=== PATIENT | female | born 1970 | race African-American/Black ===

== ENCOUNTER 2016-04-26 11:48 | Emergency (ER) | payer MEDICAID, OTHER ==
[~2016-04-26] VITALS: Ht 170.2 cm; Wt 65.8 kg
[~2016-04-26 11:48] MED LIST: AFRIN NASAL SPR30 ML NASAL; ALBUTEROL SULF8.5 GM INH; AZITHROMYCIN250 MG ORAL; CIPRO500 MG PO; CLARITIN-D 241 EACH PO; DIFLUCAN100 MG ORAL; DYAZIDE1 CAP ORAL; FLONASE1 SPRAYS NASAL; METRONIDAZOLE500 MG ORAL; MONISTAT 744 GM VG; POTASSIUM CHLO20 ME1 ORAL; VERAPAMIL ER240 MG ORAL
[2016-04-26 12:46] LABS: APPEARANCE,URINE SLIGHTLY CLOUDY; KETONES,URINE NEGATIVE (NEGATIVE); LEUKOCYTE ESTERASE ,URINE 1+ (NEGATIVE); NITRITE,URINE NEGATIVE (NEGATIVE); PH,URINE 8 (4.5-8.0); PROTEIN,URINE NEGATIVE (NEGATIVE); UROBILINOGEN,URINE NORMAL MG/DL (0.0-1.0)
[2016-04-26 12:56] LABS: BACTERIA,URINE FEW /HPF; SQUAMOUS EPITHELIAL CELL,UR FEW /LPF (NONE/OCC)
[2016-04-26 13:00] VITALS: BP 124/85
[2016-04-26] MEDS ORDERED: NITROFURANTOIN100 M2 ORAL (13:13)
[2016-04-26 13:21] VITALS: BP 124/85
--- NOTE | 2016-04-26 13:51 | Emergency Room Report ---
History of Present Illness General Chief Complaint: Female Urogenital Problems Source: Patient Present Illness HPI The patient is a 46-year-old female presenting with lower abdominal pain and dysuria which began yesterday. The patient also admits to hematuria. Abdominal pain is described as a 6/10 dull ache only to the lower mid abdomen. Patient also states that she feels a burning with urination. Patient denies any vaginal discharge, flank pain, nausea, vomiting, fever, chills. Allergies: Coded Allergies: PENICILLINS (Verified Allergy, 11/28/12) SULFA (SULFONAMIDE ANTIBIOTICS) (Verified Allergy, 11/28/12) Patient History Past Medical History: see triage record Pertinent Family History: none Last Menstrual Period: hyst Reviewed Nursing Documentation: PMH: Agreed, PSxH: Agreed Nursing Documentation-PMH Past Medical History: No History, Except For Hx Cardiac Problems: No Hx Hypertension: Yes Hx Neurological Problems: No - BRAIN ANURYSM Hx Cerebrovascular Accident: Yes - ANNURYSM 1994 Hx Seizures: Yes - 1994 Review of Systems All Other Systems: negative except mentioned in HPI Physical Exam Vital Signs Date Time Temp Pulse Resp B/P Pulse Ox O2 Delivery O2 Flow Rate FiO2 04/26/16 11:57 98.2 90 18 124/85 98 Room Air Sp02 EP Interpretation: reviewed, normal General Appearance: no apparent distress, alert, GCS 15, non-toxic Head: normocephalic, atraumatic Eyes: bilateral eye PERRL, bilateral eye normal inspection Gastrointestinal: normal bowel sounds, soft, non-distended, no guarding, no rebound, tenderness - suprapubic Genitourinary: normal inspection, no CVA tenderness Musculoskeletal: back normal, gait/station normal, normal range of motion, non- tender Neurologic: alert, oriented x3, responsive, motor strength/tone normal, sensory intact, speech normal Psychiatric: judgement/insight normal, memory normal, mood/affect normal, no suicidal/homicidal ideation Skin: normal color, no rash, warm/dry, well hydrated Lymphatic: no adenopathy Medical Decision Making PA Attestation Dr. Grimes is my supervising physician. Patient management was discussed with my supervising physician Diagnostic Impression: Primary Impression: UTI ER Course The patient is a 46-year-old female presenting with lower abdominal pain and dysuria which began yesterday Differential diagnosis considered but not limited to: UTI, vaginitis, pyelonephritis, pyelonephrosis, PID, ectopic PE: Vitals WNL. Afebrile. Abd is soft. Normal BS. + suprapubic TTP. No CVA tenderness. UA is consistent with UTI The patient will be discharged home with a prescription for Macrobid. ER precautions are given Laboratory Tests Test 04/26/16 12:00 Urine Color Yellow Urine Appearance Slightly cloudy Urine pH 8 (4.5-8.0) Urine Specific [place] 1.010 (1.005-1.035) Urine Protein Negative (NEGATIVE) Urine Glucose (UA) Negative (NEGATIVE) Urine Ketones Negative (NEGATIVE) Urine Occult Blood 4+ (NEGATIVE) H Urine Nitrite Negative (NEGATIVE) Urine Bilirubin Negative (NEGATIVE) Urine Urobilinogen Normal MG/DL (0.0-1.0) Urine Leukocyte Esterase 1+ (NEGATIVE) H Urine RBC 5-10 /HPF (0 - 2) H Urine WBC 10-15 /HPF (0 - 2) H Urine Squamous Epithelial Cells Few /LPF (NONE/OCC) Urine Bacteria Few /HPF (NONE) Urine HCG, Qualitative Negative Lab Results Impression 10-15 WBCs. No nitrites. Last Vital Signs Date Time Temp Pulse Resp B/P Pulse Ox O2 Delivery O2 Flow Rate FiO2 04/26/16 11:57 98.2 90 18 124/85 98 Room Air Status: improved Disposition: HOME, SELF-CARE Condition: Improved Scripts Nitrofurantoin Monohyd/M-Cryst* (MACROBID 100 MG*) 100 Mg Capsule 100 MG ORAL EVERY 12 HOURS, #14 CAP Prov: JESSE ARROYO 04/26/16 Referrals: [facility],REFERR[facility] Patient Instructions: Urinary Tract Infection Additional Instructions: I discussed my findings with the patient. All questions and concerns have been answered. Treatment and medication compliance have been addressed. I advised the patient that they need to follow up with PMD in 3-5 days. Return to ED if symptoms worsen, new symptoms arise, or if needed for any reason. Patient verbalized understanding of discharge instructions. JESSE ARROYO Apr 26, 2016 13:51
== END 2016-04-26 13:21 | disposition home or self-care (01) ==
LOC: EMR 12:36
DX: N39.0 Urinary tract infection, site not specified (principal); Z88.0 Allergy status to penicillin; Z88.2 Allergy status to sulfonamides; I10 Essential (primary) hypertension; Z86.73 Personal history of transient ischemic attack (TIA), and cerebral infarction without residual deficits
CPT/HCPCS: 81003; 81025; 87086; 87181; 99283

== ENCOUNTER 2016-05-19 07:02 | Emergency (ER) | payer OTHER ==
[~2016-05-19] VITALS: Ht 170.2 cm; Wt 72.6 kg
[~2016-05-19 07:02] MED LIST changes: +NITROFURANTOIN100 M2 ORAL
[2016-05-19 07:15] VITALS: BP 135/86
[2016-05-19 07:54] LABS: APPEARANCE,URINE SLIGHTLY CLOUDY; KETONES,URINE NEGATIVE (NEGATIVE); LEUKOCYTE ESTERASE ,URINE 3+ (NEGATIVE); NITRITE,URINE NEGATIVE (NEGATIVE); PH,URINE 7 (4.5-8.0); PROTEIN,URINE 2+ (NEGATIVE); UROBILINOGEN,URINE 1 MG/DL (0.0-1.0)
[2016-05-19 08:07] LABS: BACTERIA,URINE FEW /HPF; RBC,URINE 30-40 /HPF (0 - 2); SQUAMOUS EPITHELIAL CELL,UR FEW /LPF (NONE/OCC); WBC,URINE 30-40 /HPF (0 - 2)
[2016-05-19] MEDS ORDERED: NITROFURANTOIN100 M2 ORAL (08:18)
[2016-05-19 08:35] VITALS: BP 135/86
--- NOTE | 2016-05-19 08:46 | Emergency Room Report ---
History of Present Illness General Chief Complaint: Female Urogenital Problems Source: Patient Present Illness HPI 46 YOF presents with dysuria for 2 days associated with spotting. Denies abd/ pelvic pain, nausea/vomiting, fever/chills, flank pain. Was seen here last month, tx for UTI with macrobid, which she states improved symptoms. Endorses "frequent vaginal infections" since hysterectomy. Allergies: Coded Allergies: PENICILLINS (Verified Allergy, 11/28/12) SULFA (SULFONAMIDE ANTIBIOTICS) (Verified Allergy, 11/28/12) Patient History Past Medical History: none Past Surgical History: hysterectomy Pertinent Family History: none Social History: Denies: alcohol use, drug use, smoking Last Menstrual Period: s/p hyst Now: No Immunizations: UTD Reviewed Nursing Documentation: PMH: Agreed, PSxH: Agreed Nursing Documentation-PMH Past Medical History: No Stated History Hx Cardiac Problems: No Hx Hypertension: Yes Hx Neurological Problems: No - BRAIN ANURYSM Hx Cerebrovascular Accident: Yes - ANNURYSM 1994 Hx Seizures: Yes - 1994 Review of Systems All Other Systems: negative except mentioned in HPI Physical Exam Vital Signs Date Time Temp Pulse Resp B/P Pulse Ox O2 Delivery O2 Flow Rate FiO2 05/19/16 07:14 97.9 75 16 135/86 100 05/19/16 07:15 Room Air Sp02 EP Interpretation: reviewed, normal General Appearance: normal inspection, well appearing, no apparent distress, alert Head: atraumatic ENT: normal ENT inspection, hearing grossly normal, normal voice Neck: normal inspection, full range of motion, supple, no bony tend Respiratory: normal inspection, lungs clear, normal breath sounds, no respiratory distress, no retraction, no wheezing Cardiovascular #1: regular rate, rhythm, no edema Gastrointestinal: normal inspection, normal bowel sounds, non tender, soft, no guarding, no hernia Genitourinary: no CVA tenderness Musculoskeletal: normal inspection, back normal, normal range of motion, Kathy' s Sign negative Neurologic: normal inspection, alert, oriented x3, responsive, mud trucker III-XII nml as tested, motor strength/tone normal, speech normal Psychiatric: normal inspection Skin: normal inspection Lymphatic: normal inspection Medical Decision Making Diagnostic Impression: Primary Impression: Dysuria ER Course UA grossly infected. Multiple WBCs, LE Previous Cx shows salazar-susceptibility Will Rx with macrobid again Advised PMD referral for Urology for bladder scan to r/o anatomic abnormalities predisposing to frequent UTI DC home Last Vital Signs Date Time Temp Pulse Resp B/P Pulse Ox O2 Delivery O2 Flow Rate FiO2 05/19/16 08:35 97.9 75 16 135/86 100 Room Air Status: improved Disposition: HOME, SELF-CARE Condition: Improved Scripts Nitrofurantoin Monohyd/M-Cryst* (MACROBID 100 MG*) 100 Mg Capsule 100 MG ORAL EVERY 12 HOURS for 7 Days, #14 CAP Prov: JESSICA ALVAREZ M.D. 05/19/16 Patient Instructions: Urinary Tract Infection Additional Instructions: - Take ALL antibiotics for UTI - Please followup with primary care doctor for Urology referral for recurrent UTI JESSICA ALVAREZ M.D. May 19, 2016 08:46
== END 2016-05-19 08:35 | disposition home or self-care (01) ==
LOC: EMR 07:50
DX: R30.0 Dysuria (principal); I10 Essential (primary) hypertension; Z90.710 Acquired absence of both cervix and uterus; Z88.0 Allergy status to penicillin; Z88.2 Allergy status to sulfonamides; Z86.73 Personal history of transient ischemic attack (TIA), and cerebral infarction without residual deficits
CPT/HCPCS: 81003; 81025; 87086; 99283

== ENCOUNTER 2016-12-15 12:22 | Emergency (ER) | payer MEDICAID, OTHER ==
[~2016-12-15] VITALS: Ht 170.2 cm; Wt 72.6 kg
[2016-12-15 13:01] VITALS: BP 124/67
[2016-12-15 13:24] LABS: ALANINE AMINOTRANSFERASE 13 U/L (3-33); ALBUMIN/GLOBULIN RATIO 1.5 (1.0-2.7); ANION GAP 11 (5-15); ASPARTATE AMINO TRANSFERASE 14 U/L (5-40); CARBON DIOXIDE 27 mEQ/L (20-30); CHLORIDE 96 mEQ/L (98-107); CREATININE 0.9 mg/dL (0.5-0.9); GLOMERULAR FILTRATION RATE > 60 mL/min (>60); HEMOLYSIS 2; LIPASE 55 U/L (< 60); POTASSIUM 3.1 mEQ/L (3.4-4.9); SODIUM 134 mEQ/L (135-145); TOTAL PROTEIN 6.7 g/dL (6.6-8.7)
[2016-12-15 13:28] LABS: APPEARANCE,URINE SLIGHTLY CLOUDY; KETONES,URINE NEGATIVE (NEGATIVE); LEUKOCYTE ESTERASE ,URINE NEGATIVE (NEGATIVE); NITRITE,URINE NEGATIVE (NEGATIVE); PH,URINE 7 (4.5-8.0); PROTEIN,URINE NEGATIVE (NEGATIVE); UROBILINOGEN,URINE NORMAL MG/DL (0.0-1.0)
[2016-12-15 13:35] LABS: BASOPHILS % (AUTO) 0.7 % (0.0-2.0); EOSINOPHILS % (AUTO) 0.9 % (0.0-3.0); LYMPHOCYTES % (AUTO) 31.2 % (20.0-45.0); MEAN CORPUSCULAR HEMOGLOBIN 30.4 PG (27.0-31.0); MEAN CORPUSCULAR HGB CONC 33.9 G/DL (32.0-36.0); MEAN CORPUSCULAR VOLUME 90 FL (80-99); MEAN PLATELET VOLUME 10.3 FL (6.5-10.1); MONOCYTES % (AUTO) 5.9 % (1.0-10.0); NEUTROPHILS % (AUTO) 61.3 % (45.0-75.0); PLATELET COUNT 216 K/UL (150-450); RED BLOOD COUNT 4.66 M/UL (4.20-5.40); RED CELL DISTRIBUTION WIDTH 11.5 % (11.6-14.8); WHITE BLOOD COUNT 6.4 K/UL (4.8-10.8)
[2016-12-15 13:45] LABS: BACTERIA,URINE FEW /HPF; SQUAMOUS EPITHELIAL CELL,UR FEW /LPF (NONE/OCC); WBC,URINE 0-2 /HPF (0 - 2)
--- NOTE | 2016-12-15 13:49 | Emergency Room Report ---
History of Present Illness General Chief Complaint: Abdominal Pain Source: Patient Present Illness HPI 46-year-old female presents to ED for evaluation. States that she's been having lower back pain for the last several days which is now radiating to the front. Pain is throbbing, 6/10. Constant. Denies dysuria. Denies flank pain. Denies nausea or vomiting. No other aggravating relieving factors. Denies any other systemic symptoms Allergies: Coded Allergies: PENICILLINS (Verified Allergy, 11/28/12) SULFA (SULFONAMIDE ANTIBIOTICS) (Verified Allergy, 11/28/12) Patient History Past Medical History: HTN Past Surgical History: none Pertinent Family History: none Social History: Denies: smoking, alcohol use, drug use Last Menstrual Period: partial hystrectomy Now: No Immunizations: UTD Reviewed Nursing Documentation: PMH: Agreed, PSxH: Agreed Nursing Documentation-PMH Past Medical History: No History, Except For Hx Cardiac Problems: No Hx Hypertension: Yes Hx Pacemaker: No Hx Asthma: No Hx COPD: No Hx Diabetes: No Hx Cancer: No Hx Gastrointestinal Problems: No Hx Dialysis: No History Of Psychiatric Problem: No Hx Neurological Problems: No Hx Cerebrovascular Accident: No Hx Seizures: No Review of Systems All Other Systems: negative except mentioned in HPI Physical Exam Vital Signs Date Time Temp Pulse Resp B/P (MAP) Pulse Ox O2 Delivery O2 Flow Rate FiO2 12/15/16 12:25 97.9 76 16 124/78 98 12/15/16 13:01 Room Air Sp02 EP Interpretation: reviewed, normal General Appearance: no apparent distress, alert, GCS 15, non-toxic Head: normocephalic, atraumatic Eyes: bilateral eye normal inspection, bilateral eye PERRL ENT: hearing grossly normal, normal pharynx, no angioedema, normal voice Neck: full range of motion, supple/symm/no masses Respiratory: chest non-tender, lungs clear, normal breath sounds, speaking full sentences Cardiovascular #1: regular rate, rhythm, no edema Cardiovascular #2: 2+ carotid (R), 2+ carotid (L), 2+ radial (R), 2+ radial (L) , 2+ dorsalis pedis (R), 2+ dorsalis pedis (L) Gastrointestinal: normal bowel sounds, soft, non-distended, no guarding, no rebound, tenderness - periumbilical Rectal: deferred Genitourinary: normal inspection, no CVA tenderness Musculoskeletal: back normal, gait/station normal, normal range of motion, tender - lower back Neurologic: alert, oriented x3, responsive, motor strength/tone normal, sensory intact, speech normal Psychiatric: judgement/insight normal, memory normal, mood/affect normal, no suicidal/homicidal ideation Reflexes: 3+ bicep (R), 3+ bicep (L), 3+ tricep (R), 3+ tricep (L), 3+ knee (R) , 3+ knee (L) Skin: normal color, no rash, warm/dry, well hydrated Lymphatic: no adenopathy Medical Decision Making Diagnostic Impression: Primary Impression: Constipation Qualified Codes: K59.00 - Constipation, unspecified Additional Impression: abdominal pain ER Course Hospital Course 46-year-old F presents to ED with abdominal pain Differential diagnosis includes-appendicitis, cholecystitis, small bowel obstruction, gastritis, Clinical course Patient placed on stretcher. After initial history and physical I ordered labs , IV fluids, pain medications and CT Labs - no leukocytosis, electrolytes ok, LFTs normal CT considerable fecal impaction I feel this is a highly complex case requiring extensive working including EKG/ Rhythm strip, Xray/CT/US, Blood/urine lab work, repeat exams while in ED, and administration of strong opiates/narcotics for pain control, admission to hospital or close patient follow up. Diagnosis - constipation Stable and discharged to home with Rx Bentyl, Lactulose. Followup with PMD. Return to ED if symptoms recur or worsen Labs Test 12/15/16 12:30 12/15/16 12:47 Urine Color Pale yellow Urine Appearance Slightly cloudy Urine pH 7 (4.5-8.0) Urine Specific [place] 1.010 (1.005-1.035) Urine Protein Negative (NEGATIVE) Urine Glucose (UA) Negative (NEGATIVE) Urine Ketones Negative (NEGATIVE) Urine Occult Blood 3+ (NEGATIVE) Urine Nitrite Negative (NEGATIVE) Urine Bilirubin Negative (NEGATIVE) Urine Urobilinogen Normal MG/DL (0.0-1.0) Urine Leukocyte Esterase Negative (NEGATIVE) Urine RBC 5-10 /HPF (0 - 2) Urine WBC 0-2 /HPF (0 - 2) Urine Squamous Epithelial Cells Few /LPF (NONE/OCC) Urine Bacteria Few /HPF (NONE) White Blood Count 6.4 K/UL (4.8-10.8) Red Blood Count 4.66 M/UL (4.20-5.40) Hemoglobin 14.2 G/DL (12.0-16.0) Hematocrit 41.9 % (37.0-47.0) Mean Corpuscular Volume 90 FL (80-99) Mean Corpuscular Hemoglobin 30.4 PG (27.0-31.0) Mean Corpuscular Hemoglobin Concent 33.9 G/DL (32.0-36.0) Red Cell Distribution Width 11.5 % (11.6-14.8) Platelet Count 216 K/UL (150-450) Mean Platelet Volume 10.3 FL (6.5-10.1) Neutrophils (%) (Auto) 61.3 % (45.0-75.0) Lymphocytes (%) (Auto) 31.2 % (20.0-45.0) Monocytes (%) (Auto) 5.9 % (1.0-10.0) Eosinophils (%) (Auto) 0.9 % (0.0-3.0) Basophils (%) (Auto) 0.7 % (0.0-2.0) Sodium Level 134 mEQ/L (135-145) Potassium Level 3.1 mEQ/L (3.4-4.9) Chloride Level 96 mEQ/L (98-107) Carbon Dioxide Level 27 mEQ/L (20-30) Anion Gap 11 (5-15) Blood Urea Nitrogen 11 mg/dL (7-23) Creatinine 0.9 mg/dL (0.5-0.9) Estimat Glomerular Filtration Rate > 60 mL/min (>60) Glucose Level 129 mg/dL (74-106) Calcium Level 9.0 mg/dL (8.6-10.2) Total Bilirubin 0.4 mg/dL (0.0-1.2) Aspartate Amino Transf (AST/SGOT) 14 U/L (5-40) Alanine Aminotransferase (ALT/SGPT) 13 U/L (3-33) Alkaline Phosphatase 54 U/L (35-104) Total Protein 6.7 g/dL (6.6-8.7) Albumin 4.1 g/dL (3.5-5.2) Globulin 2.6 g/dL Albumin/Globulin Ratio 1.5 (1.0-2.7) Lipase 55 U/L (< 60) Human Chorionic Gonadotropin, Quant < 1 mIU/mL CT/MRI/US Diagnostic Results CT/MRI/US Diagnostic Results : Imaging Test Ordered: CT A/P Impression considerable fecal impaction Last Vital Signs Date Time Temp Pulse Resp B/P (MAP) Pulse Ox O2 Delivery O2 Flow Rate FiO2 12/15/16 13:01 98.0 73 21 124/67 100 Room Air Status: improved Disposition: HOME, SELF-CARE Condition: Stable Scripts Dicyclomine Hcl* (BENTYL*) 10 Mg Capsule 10 MG ORAL FOUR TIMES A DAY for For Pain, #20 CAP Prov: Ori Grimes 12/15/16 Lactulose (LACTULOSE*) 20 Gm/30 Ml Solution 30 ML ORAL DAILY for Constipation, #90 ML 0 Refills Prov: Ori Grimes 12/15/16 Referrals: NON PHYSICIAN (PCP) LURDES LEWIS M.D. Dec 15, 2016 13:49
--- NOTE | 2016-12-15 15:21 | Diagnostic Imaging Report ---
Indication: Abdominal pain Technique: Continuous helical transaxial imaging of the abdomen and pelvis was obtained from the lung bases to the pubic symphysis during intravenous contrast administration. Coronal 2-D reformats were also obtained. Study obtained in a Siemens sensation [address] Total Dose length Product (DLP): [address] Dose Index Volume (CTDIvol): 0.15, 15.23 mGy Comparison: 06/05/13 Findings: There is mild posterior basilar atelectasis demonstrated. There are several tiny hypodensities within the liver. Many of these are too small to adequately characterize on this examination but the ones that are large enough appeared be cystic. Gallbladder is unremarkable. There is no biliary ductal dilatation. There are a few cysts present within both kidneys. The pancreas, adrenal glands and spleen appear unremarkable. There is a small hiatal hernia present. Mild to moderate retention of fecal material noted within the colon. The appendix is partially seen and appears normal. There is no evidence of bowel dilatation, free fluid or free air. Uterus is not seen. Impression: Innumerable hypodensities within the liver most likely cysts. Many are too small to characterize. Multiple tiny cysts within both kidneys. Status post hysterectomy. Normal appendix. Mild to moderate fecal retention within the colon. Small hiatal hernia The CT scanner at [facility] is accredited by the [employer] and the scans are performed using dose optimization techniques as appropriate to a performed exam including Automatic Exposure control.
[2016-12-15 15:26] VITALS: BP 123/77
[2016-12-15] MEDS ORDERED: LACTULOSE20 GM/301 ORAL (16:24)
[2016-12-15] MEDS ORDERED: BENTYL10 MG ORAL (16:24)
[2016-12-15 16:30] VITALS: BP 123/77
== END 2016-12-15 16:33 | disposition home or self-care (01) ==
LOC: EMR 12:43
DX: K59.00 Constipation, unspecified (principal); R10.9 Unspecified abdominal pain; Z88.2 Allergy status to sulfonamides; I10 Essential (primary) hypertension; Z88.0 Allergy status to penicillin
CPT/HCPCS: 36415; 74177; 80053; 81003; 83690; 84702; 85025; 99284; Q9967

== ENCOUNTER 2017-10-30 11:37 | Emergency (ER) | payer MEDICAID ==
[~2017-10-30] VITALS: Ht 170.2 cm; Wt 74.8 kg
[~2017-10-30 11:37] MED LIST changes: +BENTYL10 MG ORAL; +LACTULOSE20 GM/301 ORAL
[2017-10-30] MEDS ORDERED: Clindamycin 150mg cap ORAL STA (11:54)
[2017-10-30] MEDS ORDERED: Neosporin Oint Ud Pkt TOPIC ONE (12:00)
--- NOTE | 2017-10-30 12:53 | Emergency Room Report ---
History of Present Illness General Chief Complaint: Skin Rash/Abscess Source: Patient, Medical Record Present Illness HPI Patient presents with rash on legs. This began last at work. She drank some tea and started having itching of her skin. She scratched her legs. There were blisters which eventually came up in lines where she had scratched. They areas are burning and itching. She has tried hydrocortisone and neosporin. No throat swelling, dyspnea, wheezing. Slight nausea, no vomiting or change in bowel habits. No dysuria. No headache or dizziness. No joint pain or oral lesions. Pain in skin is 4/10, burning, not radiating. She alleges "allergic to everything". Tetanus last year. Post hysterectomy. Allergies: Coded Allergies: PENICILLINS (Verified Allergy, 11/28/12) SULFA (SULFONAMIDE ANTIBIOTICS) (Verified Allergy, 11/28/12) Patient History Past Medical History: see triage record Past Surgical History: hysterectomy Social History: Denies: smoking Social History Narrative works - [employer] per records Last Menstrual Period: hysterectomy 9 yrs ago Reviewed Nursing Documentation: PMH: Agreed; PSxH: Agreed Nursing Documentation-PMH Past Medical History: No History, Except For Hx Cardiac Problems: No Hx Hypertension: Yes Hx Pacemaker: No Hx Asthma: No Hx COPD: No Hx Diabetes: No Hx Cancer: No Hx Gastrointestinal Problems: No Hx Dialysis: No Hx Neurological Problems: No Hx Cerebrovascular Accident: No Hx Seizures: No Review of Systems All Other Systems: negative except mentioned in HPI Physical Exam Vital Signs Date Time Temp Pulse Resp B/P (MAP) Pulse Ox O2 Delivery O2 Flow Rate FiO2 10/30/17 11:38 97.9 80 18 115/73 96 Room Air 97.9 Sp02 EP Interpretation: reviewed, normal General Appearance: well appearing, no apparent distress, GCS 15 Head: normocephalic, atraumatic Eyes: bilateral eye normal inspection, bilateral eye PERRL ENT: hearing grossly normal, normal voice, moist mucus membranes Neck: full range of motion, supple Respiratory: no respiratory distress, speaking full sentences Cardiovascular #1: regular rate, rhythm, no edema Cardiovascular #2: 2+ radial (R) Gastrointestinal: normal inspection Musculoskeletal: digits/nails normal, gait/station normal, normal range of motion, no calf tenderness Neurologic: alert, oriented x3, normal gait, grossly normal Psychiatric: mood/affect normal Skin: other - linear blistering with possible pultules - 3 mm wide and 1-4 cm long on bilateral legs. No underlying erythema Medical Decision Making Diagnostic Impression: Primary Impression: Cellulitis Qualified Codes: L03.119 - Cellulitis of unspecified part of limb Additional Impression: Allergic reaction Qualified Codes: T78.40XA - Allergy, unspecified, initial encounter ER Course Patient with linear skin rash after possible allergic reaction. DDX: contact dermatitis, allergic reaction, cellulitis amongst others. Patient's exam is consistent with superinfection of allergic reaction. Not toxic or systemic effects. However, oral antibiotics indicated. Improved pain after topical antibiotics applied. Patient stable for outpatient observation and treatment Last Vital Signs Date Time Temp Pulse Resp B/P (MAP) Pulse Ox O2 Delivery O2 Flow Rate FiO2 10/30/17 13:13 97.9 18 115/73 96 Room Air 97.9 10/30/17 11:38 80 Status: improved Disposition: HOME, SELF-CARE Condition: Improved Scripts Bacitracin (Bacitracin) 28.4 Gm Oint...g. 1 APPLIC TOPIC BID, #10 GM Prov: Hero Ty M.D. 10/30/17 Fluconazole (FLUCONAZOLE) 100 Mg Tablet 100 MG ORAL DAILY, #1 TAB 0 Refills Take at the end of the antibiotics. Prov: Hero Ty M.D. 10/30/17 Clindamycin Hcl (CLINDAMYCIN HCL) 300 Mg Capsule 300 MG ORAL THREE TIMES A DAY, #21 CAP Prov: Hero Ty M.D. 10/30/17 Referrals: [facility],REFERRING (PCP) Hero Ty M.D. Oct 30, 2017 12:52
[2017-10-30] MEDS ORDERED: BACITRACIN15 GM TOPIC (12:56)
[2017-10-30] MEDS ORDERED: CLINDAMYCIN HC300 MG ORAL (12:56)
[2017-10-30] MEDS ORDERED: FLUCONAZOLE100 MG ORAL (12:56)
[2017-10-30 13:12] VITALS: BP 115/73
[2017-10-30 13:13] VITALS: BP 115/73
== END 2017-10-30 13:13 | disposition home or self-care (01) ==
LOC: EMR 12:04
DX: L03.119 Cellulitis of unspecified part of limb (principal); T78.40XA Allergy, unspecified, initial encounter; Z88.0 Allergy status to penicillin; Z88.2 Allergy status to sulfonamides; Z90.710 Acquired absence of both cervix and uterus
CPT/HCPCS: 99283

== ENCOUNTER 2018-06-17 22:16 | Emergency (ER) | payer MEDICAID ==
[~2018-06-17] VITALS: Ht 170.2 cm; Wt 83.9 kg
[~2018-06-17 22:16] MED LIST changes: +BACITRACIN15 GM TOPIC; +CLINDAMYCIN HC300 MG ORAL; +FLUCONAZOLE100 MG ORAL
[2018-06-17 22:48] VITALS: BP 152/87
--- NOTE | 2018-06-17 22:48 | NUR ---
ED Nurse Note: Pt arrived ED from home, c/o burning and urgency when urination. Pt is A/O X 4. Vital signs stable at this time, waiting for orders.
[2018-06-17] MEDS ORDERED: Phenazopyridine 200mg tab ORAL ONE (23:15)
[2018-06-17] MEDS ORDERED: Levofloxacin 500mg tab ORAL ONE (23:15)
[2018-06-17] MEDS ORDERED: PHENAZOPYRIDIN200 MG ORAL (23:18)
[2018-06-17] MEDS ORDERED: LEVAQUIN500 MG ORAL (23:18)
--- NOTE | 2018-06-17 23:19 | Emergency Room Report ---
History of Present Illness General Chief Complaint: Female Urogenital Problems Source: Patient Present Illness HPI Is a 48-year-old female with history of high blood pressure. She has a previous hysterectomy. She presents with chief complaint of dysuria, frequency , urgency. No hematuria. Onset for 1 day. No back pain. No nausea no vomiting. No fever chills. History of UTI in the past. No discharge. Allergies: Coded Allergies: PENICILLINS (Verified Allergy, 11/28/12) SULFA (SULFONAMIDE ANTIBIOTICS) (Verified Allergy, 11/28/12) Patient History Past Medical History: see triage record, old chart reviewed, HTN Past Surgical History: hysterectomy Pertinent Family History: none Social History: Denies: smoking Last Menstrual Period: hysterectomy 2003 Now: No Immunizations: other Reviewed Nursing Documentation: PMH: Agreed; PSxH: Agreed Nursing Documentation-PMH Past Medical History: No History, Except For Hx Cardiac Problems: No Hx Hypertension: Yes Hx Pacemaker: No Hx Asthma: No Hx COPD: No Hx Diabetes: No Hx Cancer: No Hx Gastrointestinal Problems: No Hx Dialysis: No Hx Neurological Problems: No Hx Cerebrovascular Accident: No Hx Seizures: No Review of Systems Eye: Denies: eye pain, blurred vision ENT: Denies: ear pain, nose congestion, throat swelling Respiratory: Denies: cough, shortness of breath Cardiovascular: Denies: chest pain, palpitations Gastrointestinal: Denies: abdominal pain, diarrhea, nausea, vomiting Genitourinary: Reports: dysuria, frequency, urgency Musculoskeletal: Denies: back pain, joint pain Skin: Denies: rash Neurological: Denies: headache, numbness Endocrine: Denies: increased thirst, increased urine Hematologic/Lymphatic: Denies: easy bruising All Other Systems: negative except mentioned in HPI Physical Exam Vital Signs Date Time Temp Pulse Resp B/P (MAP) Pulse Ox O2 Delivery O2 Flow Rate FiO2 06/17/18 22:36 97.9 86 16 152/87 98 Room Air vitals high blood pressure Sp02 EP Interpretation: reviewed, normal General Appearance: well appearing, no apparent distress, alert Head: normocephalic, atraumatic Eyes: bilateral eye PERRL, bilateral eye EOMI ENT: hearing grossly normal, normal pharynx Neck: full range of motion, supple, no meningismus Respiratory: chest non-tender, lungs clear, normal breath sounds Cardiovascular #1: regular rate, rhythm, no murmur Gastrointestinal: normal bowel sounds, non tender, no mass, no organomegaly, no bruit, non-distended Musculoskeletal: back normal, gait/station normal, normal range of motion Psychiatric: mood/affect normal Skin: warm/dry Medical Decision Making Diagnostic Impression: Primary Impression: UTI ER Course Patient with symptoms consistent with UTI. She grew out Escherichia coli in the past. We'll put on Levaquin. No evidence of pyelonephritis or sepsis. Dose of antibiotics and Pyridium given here. Last Vital Signs Date Time Temp Pulse Resp B/P (MAP) Pulse Ox O2 Delivery O2 Flow Rate FiO2 06/17/18 22:48 97.9 78 16 152/87 98 Room Air Status: improved Disposition: HOME, SELF-CARE Condition: Stable Scripts Phenazopyridine Hcl* (PYRIDIUM*) 200 Mg Tablet 200 MG ORAL THREE TIMES A DAY, #6 TAB 0 Refills Prov: Willis Anaya MD 06/17/18 Levofloxacin* (LEVAQUIN*) 500 Mg Tablet 500 MG ORAL DAILY, #6 TAB Prov: Willis Anaya MD 06/17/18 Patient Instructions: Urinary Tract Infection Additional Instructions: Increase fluid. Follow-up with your doctor in 7 days if not better. Return if increasing pain, fever, bleeding, or not better in 2 days. Urine culture sent. We will call you if cultures show resistant to Levaquin. Willis Anaya MD Jun 17, 2018 23:19
[2018-06-17 23:46] VITALS: BP 145/81
--- NOTE | 2018-06-17 23:46 | NUR ---
ER DISCHARGE NOTE: Patient is cleared to be discharged per Jaclyn. Pt is A/O x4 on room air with stable vital signs. Pt was given D/C and prescription instructions and pt was able to verbalize understanding. Pt's ID band removed. pt is able to ambulate with steady gait and pt took all belongings.
== END 2018-06-17 23:46 | disposition home or self-care (01) ==
LOC: EMR 23:10
DX: N39.0 Urinary tract infection, site not specified (principal); I10 Essential (primary) hypertension; Z88.0 Allergy status to penicillin; Z88.2 Allergy status to sulfonamides
CPT/HCPCS: 87086; 87181; 99282